=== PATIENT | male | born 1965 | race Caucasian/White ===

== ENCOUNTER 2017-09-28 07:30 | Day surgery (SDC) | payer BC ==
[2017-09-28] MEDS ORDERED: LIDOCAINE HCL 1% MPF 30 SOL ONE (08:01)
[2017-09-28] MEDS ORDERED: PROPOFOL 500 MG/50 ML EMU IV ONE (08:01)
[2017-09-28] MEDS ORDERED: PROPOFOL 10 MG/ML EMU IV ONE (08:52)
[2017-09-28 09:59] VITALS: BP 135/81; PULSE 70; RESP 20; TEMP 97; O2SAT 95
== END 2017-09-28 10:10 | disposition home or self-care (01) ==
LOC: SURG 07:30
PROVIDERS: ATTEND Surgery
DX: Z12.11 Encounter for screening for malignant neoplasm of colon (principal); R10.33 Periumbilical pain; R11.2 Nausea with vomiting, unspecified; R63.4 Abnormal weight loss; Q39.9 Congenital malformation of esophagus, unspecified; K29.70 Gastritis, unspecified, without bleeding; D12.4 Benign neoplasm of descending colon; D12.3 Benign neoplasm of transverse colon
CPT/HCPCS: 82962; 99001; J2001; J2704

== ENCOUNTER 2018-07-05 11:33 | Emergency (ER) | payer BC, OTHER ==
[2018-07-05] MEDS ORDERED: KETOROLAC TROMETHAMINE 30 MG/ML SOL IV ONE (11:51)
[2018-07-05] MEDS ORDERED: ONDANSETRON HCL 4 MG/2 ML SOL IV ONE (11:52)
[2018-07-05] MEDS ORDERED: PANTOPRAZOLE SODIUM 40 MG/10 ML PDS IV ONE (11:52)
[2018-07-05] MEDS ORDERED: ONDANSETRON HCL 4 MG/2 ML SOL ONE (11:54)
[2018-07-05] MEDS ORDERED: KETOROLAC TROMETHAMINE 30 MG/ML SOL ONE (11:54)
[2018-07-05] MEDS ORDERED: PANTOPRAZOLE SODIUM 40 MG/10 ML PDS ONE (11:54)
[2018-07-05 12:07] LABS: HEMATOCRIT 53 % (39-53); HEMOGLOBIN 17.5 gm/dl (13.5-17.7); MEAN CORPUSCULAR HEMOGLOBIN 29.8 pg (27.0-32.0); MEAN CORPUSCULAR VOLUME 90 fL (80-100)
[2018-07-05] MEDS: SODIUM CHLORIDE 0.9% 1000ML 1,000 ML IV SCH ×2 (12:10→13:10)
[2018-07-05 12:20] LABS: ALBUMIN 4.1 gm/dl (3.4-5.0); BILIRUBIN,TOTAL 1.1 mg/dl (0.2-1.0); CALCIUM 9.4 mg/dl (8.5-10.1); CARBON DIOXIDE 20.8 mEq/L (21-32); CREATININE 1.05 mg/dl (0.80-1.30); TOTAL PROTEIN 8.2 gm/dl (6.4-8.2)
[2018-07-05 12:38] LABS: BAND NEUTROPHILS % (MANUAL) 0 %; BASOPHILS % (MANUAL) 0 % (0-3); EOSINOPHILS % (MANUAL) 1 % (0-9); LYMPHOCYTES % (MANUAL) 34 % (10-50); MONOCYTES % (MANUAL) 10 % (0-12); NEUTROPHILS % (MANUAL) 55 % (37-80); NORMAL RBCS PRESENT
[2018-07-05] MEDS ORDERED: POTASSIUM CHLORIDE 10 MEQ TER PO ONE (12:43)
[2018-07-05] MEDS ORDERED: POTASSIUM CHLORIDE 10 MEQ TER ONE (13:02)
[2018-07-05] MEDS ORDERED: POTASSIUM CHLORIDE 2 MEQ/ML 40 MEQ, LIDOCAINE HCL 1% MDV 2 ML in SODIUM CHLORIDE 0.9% 5... IV ONE (13:12)
[2018-07-05] MEDS ORDERED: POTASSIUM CHLORIDE 2 MEQ/ML SOL IV ONE (13:20)
[2018-07-05] MEDS ORDERED: LIDOCAINE HCL 1% MPF 30 SOL ONE (13:20)
[2018-07-05] MEDS ORDERED: PROCHLORPERAZINE EDISYLATE 5 MG/ML SOL IV ONE (15:26)
[2018-07-05] MEDS ORDERED: PROCHLORPERAZINE EDISYLATE 5 MG/ML SOL ONE (15:31)
[2018-07-05 16:08] LABS: APPEARANCE,URINE Slightly Cloudy; BILIRUBIN,URINE 1+ (NEGATIVE); COLOR,URINE Dark yellow; GLUCOSE, URINE (UA) NEGATIVE (NEGATIVE); KETONES,URINE 2+ (NEGATIVE); LEUKOCYTE ESTERASE ,URINE NEGATIVE (NEGATIVE); NITRATE,URINE NEGATIVE (NEGATIVE); OCCULT BLOOD,URINE NEGATIVE (NEG-TRACE)
[2018-07-05 16:30] LABS: ICTOTEST,URINE NEGATIVE (NEGATIVE)
[2018-07-05 16:31] LABS: BACTERIA 1+ (< 1+); CRYSTALS NEGATIVE (0-3 AVE/HPF); EPITHELIAL CELLS 0-3 (SQUAMOUS); RBC,URINE 0-4 (0-3AV/HPF); WBC,URINE 0-2 (0-5AV/HPF)
[2018-07-05 18:52] VITALS: BP 154/90; PULSE 82; RESP 20; TEMP 97.2; O2SAT 97
== END 2018-07-05 18:10 | disposition home or self-care (01) ==
LOC: ED 11:33
DX: K52.9 Noninfective gastroenteritis and colitis, unspecified (principal); E86.0 Dehydration
CPT/HCPCS: 80053; 81001; 85007; 85027; 96365; 96366; 96374; 96375; 99283; 99285; J0780; J1885; J2405; J3480; A9270-GY; J2001